=== PATIENT | female | born 1950 | race Caucasian/White ===

== ENCOUNTER 2021-09-07 21:40 | Inpatient (IN) ==
[2021-09-08] MEDS ORDERED: Ondansetron 4 MG/2 ML VIAL IVP PRN ×2 (00:58→14:11)
[2021-09-08] MEDS ORDERED: Naloxone 0.4 MG/ML INJ IVP PRN ×2 (00:58→14:11)
[2021-09-08] MEDS ORDERED: 0.9 % Sodium Chloride 1,000 ML IVC SCH (01:00)
[2021-09-08] MEDS ORDERED: Ipratropium/Albuterol Neb 3 ML IH PRN ×2 (01:02→14:11)
[2021-09-08 01:55] LABS: Basophils % 0.3 %; Eosinophils # 0.1 K/mcL (0.0-0.6); Eosinophils % 1.3 %; Hematocrit 38.3 % (35.3-44.9); Hemoglobin 12.4 g/dL (11.5-15.4); Immature Granulocytes % 0.3 % (0-4); Lymphocytes % 18.8 %; Mean Corpuscular HGB Conc 32.4 g/dL (31.6-35.5); Mean Corpuscular Hemoglobin 29.6 pg (28.0-33.3); Mean Corpuscular Volume 91.4 fL (83.0-100.0); Mean Platelet Volume 10.1 fL (9.4-12.4); Monocytes # 0.7 K/mcL (0.0-1.3); Monocytes % 6.4 %; Neutrophils # 7.9 K/mcL (1.6-8.9); Platelet Count 527 K/mcL (140-400); Red Blood Count 4.19 M/mcL (3.82-4.97); Red Cell Distribution Width 13.6 % (11.5-14.5); Segmented Neutrophils % 72.9 %; White Blood Count 10.8 K/mcL (4.3-11.1)
[2021-09-08 02:02] LABS: INR 1.1; Prothrombin Time 12.3 Seconds (9.4-12.1)
[2021-09-08] MEDS: Morphine Sulfate 2 MG/ML SYRINGE IVP PRN ×3 (02:10→20:18)
[2021-09-08 02:15] LABS: BUN/Creatinine Ratio 30 (6-26); Blood Urea Nitrogen 21 mg/dL (8-23); Calcium 8.7 mg/dL (8.6-10.3); Carbon Dioxide 19 mEq/L (23-29); Chloride 104 mEq/L (98-107); Glucose 99 mg/dL (70-105); Magnesium 1.7 mg/dL (1.6-2.6); Osmolality,Calculated 281 (280-300); Potassium 4.2 mEq/L (3.5-5.1); Sodium 134 mEq/L (136-145); eGFR For African Americans > 60 (> 60); eGFR For Non-African Americans > 60 (> 60)
[2021-09-08 02:28] LABS: Thyroid Stimulating Hormone 6.512 mcIU/mL (0.340-5.600)
[2021-09-08] MEDS ORDERED: Ipratropium/Albuterol Neb 3 ML IH STA ×2 (10:54→14:11)
[2021-09-08] MEDS ORDERED: Lidocaine HCL 4 ML Topical Solution (Laryng-O-Jet Kit Sterile Pak) TP ONE (11:11)
[2021-09-08] MEDS ORDERED: Lidocaine -MPF 2% 5 ML VIAL ONE (11:11)
[2021-09-08] MEDS ORDERED: *HR* FentaNYL (PF) 100 MCG/2 ML VIAL ONE (11:11)
[2021-09-08] MEDS ORDERED: *HR* Propofol 200 MG/20 ML VIAL IVP ONE (11:11)
[2021-09-08] MEDS ORDERED: Ondansetron 4 MG/2 ML VIAL ONE (11:11)
[2021-09-08] MEDS ORDERED: *HR* Rocuronium Bromide 50 MG/5 ML VIAL ONE (11:11)
[2021-09-08] MEDS ORDERED: CefOXitin 1,000 MG VIAL ONE (11:18)
[2021-09-08] MEDS ORDERED: *HR* Succinylcholine 200 MG/10 ML VIAL IVP ONE (11:28)
[2021-09-08] MEDS ORDERED: CefOXitin 2,000 MG VIAL ONE (11:30)
[2021-09-08] MEDS ORDERED: cefOXitin 2,000 MG in Water for inj. (sterile) 20 ML IVP ONE (12:06)
[2021-09-08] MEDS ORDERED: Sugammadex Sodium 200 MG/2 ML VIAL IV ONE (12:18)
[2021-09-08] MEDS ORDERED: *HR* HYDROMORPHONE 2 MG/ML VIAL ONE (12:20)
[2021-09-08] MEDS ORDERED: Famotidine 20 MG/2 ML VIAL IVP ONE (13:14)
[2021-09-08] MEDS ORDERED: *HR* Labetalol 20 MG/4 ML SYRINGE IVP PRN (13:14)
[2021-09-08] MEDS ORDERED: *HR* OxyCODONE Immed Rel 5 MG TABLET PO PRN (13:14)
[2021-09-08] MEDS ORDERED: *HR* HYDROmorphone 2 MG TABLET PO PRN (13:14)
[2021-09-08] MEDS ORDERED: *HR* HYDROmorphone (PF) 1 MG/ML SYRINGE IVP PRN (13:14)
[2021-09-08] MEDS ORDERED: Acetaminophen IV 1,000 MG/100 ML BAG IVPB ONE (13:14)
[2021-09-08] MEDS ORDERED: NON-FORMULARY MEDICATION 1 EACH EACH (Fluticasone/Salmeterol [Advair 250-50 Diskus] 1 EACH IH PRN (13:51)
[2021-09-08] MEDS: 0.9 % Sodium Chloride 1,000 ML IVC SCH (16:24)
[2021-09-08] MEDS: cefTRIAXone 1,000 MG in Water for inj. (sterile) 10 ML IVP SCH (20:24)
[2021-09-08] MEDS ORDERED: cefTRIAXone 1,000 MG in 0.9 % Sodium Chloride Mini Bag 100 ML IVPB SCH (21:00)
[2021-09-09] MEDS: Morphine Sulfate 2 MG/ML SYRINGE IVP PRN ×4 (02:21→20:23)
[2021-09-09] MEDS: 0.9 % Sodium Chloride 1,000 ML IVC SCH ×2 (06:10→20:19)
[2021-09-09 18:46] LABS: Amphetamine Screen,Urine Negative ng/mL (Cutoff=1000); Barbiturate Screen,Urine Negative ng/mL (Cutoff=200); Benzodiazepines Screen,Urine Negative ng/mL (Cutoff=200); Cannabinoid Screen,Urine Negative ng/mL (Cutoff = 50); Cocaine Screen,Urine Negative ng/mL (Cutoff= 300); Opiate Screen,Urine Positive ng/mL (Cutoff=300); Phencyclidine Screen,Urine Negative ng/mL (Cutoff=25)
[2021-09-09] MEDS: cefTRIAXone 1,000 MG in Water for inj. (sterile) 10 ML IVP SCH (20:17)
[2021-09-09] MEDS ORDERED: D5% in Water 1,000 ML IVC PRN (23:52)
[2021-09-09] MEDS ORDERED: Dextrose Gel 15 GM/37.5 ML TUBE PO PRN ×2 (23:52)
[2021-09-09] MEDS ORDERED: *HR* Dextrose 50 % in Water (Syg) 50 ML SYRINGE IVP PRN (23:52)
[2021-09-10] MEDS: Morphine Sulfate 2 MG/ML SYRINGE IVP PRN ×4 (00:10→23:29)
[2021-09-10] MEDS: Ipratropium/Albuterol Neb 3 ML IH SCH ×5 (11:22→23:18)
[2021-09-10 11:34] LABS: Basophils % 0.5 %; Eosinophils # 0.1 K/mcL (0.0-0.6); Hematocrit 40.9 % (35.3-44.9); Hemoglobin 12.9 g/dL (11.5-15.4); Immature Granulocytes % 0.5 % (0-4); Lymphocytes # 1.2 K/mcL (0.6-4.6); Mean Corpuscular HGB Conc 31.5 g/dL (31.6-35.5); Mean Corpuscular Hemoglobin 29.6 pg (28.0-33.3); Mean Corpuscular Volume 93.8 fL (83.0-100.0); Mean Platelet Volume 9.3 fL (9.4-12.4); Monocytes # 0.8 K/mcL (0.0-1.3); Monocytes % 9.2 %; Platelet Count 454 K/mcL (140-400); Red Blood Count 4.36 M/mcL (3.82-4.97); Red Cell Distribution Width 13.5 % (11.5-14.5); Segmented Neutrophils % 73.8 %; White Blood Count 8.2 K/mcL (4.3-11.1)
[2021-09-10 12:01] LABS: BUN/Creatinine Ratio 16 (6-26); Blood Urea Nitrogen 7 mg/dL (8-23); Calcium 8.9 mg/dL (8.6-10.3); Carbon Dioxide 17 mEq/L (23-29); Chloride 102 mEq/L (98-107); Glucose 128 mg/dL (70-105); Magnesium 1.7 mg/dL (1.6-2.6); Osmolality,Calculated 268 (280-300); Potassium 3.8 mEq/L (3.5-5.1); Sodium 129 mEq/L (136-145); eGFR For African Americans > 60 (> 60); eGFR For Non-African Americans > 60 (> 60)
[2021-09-10] MEDS: D5% in Water 1,000 ML IVC SCH (13:56)
[2021-09-10] MEDS: cefTRIAXone 1,000 MG in Water for inj. (sterile) 10 ML IVP SCH (20:30)
[2021-09-11] MEDS: Morphine Sulfate 2 MG/ML SYRINGE IVP PRN ×3 (01:30→05:39)
[2021-09-11] MEDS: Ipratropium/Albuterol Neb 3 ML IH SCH ×6 (03:41→23:21)
[2021-09-11] MEDS: D5% in Water 1,000 ML IVC SCH ×2 (05:21→21:47)
[2021-09-11 05:31] LABS: Basophils % 0.4 %; Eosinophils # 0.2 K/mcL (0.0-0.6); Eosinophils % 2.1 %; Hemoglobin 11.7 g/dL (11.5-15.4); Immature Granulocytes % 0.7 % (0-4); Lymphocytes # 1.5 K/mcL (0.6-4.6); Mean Corpuscular HGB Conc 32.5 g/dL (31.6-35.5); Mean Corpuscular Hemoglobin 29.3 pg (28.0-33.3); Mean Corpuscular Volume 90.2 fL (83.0-100.0); Mean Platelet Volume 10.6 fL (9.4-12.4); Monocytes % 12.5 %; Platelet Count 399 K/mcL (140-400); Red Blood Count 3.99 M/mcL (3.82-4.97); Red Cell Distribution Width 13.2 % (11.5-14.5); Segmented Neutrophils % 64.3 %; White Blood Count 7.7 K/mcL (4.3-11.1)
[2021-09-11 05:49] LABS: BUN/Creatinine Ratio 12 (6-26); Blood Urea Nitrogen 4 mg/dL (8-23); Calcium 8.3 mg/dL (8.6-10.3); Carbon Dioxide 23 mEq/L (23-29); Chloride 100 mEq/L (98-107); Glucose 118 mg/dL (70-105); Magnesium 1.6 mg/dL (1.6-2.6); Osmolality,Calculated 268 (280-300); Phosphorous 1.9 mg/dL (2.7-4.5); Sodium 130 mEq/L (136-145); eGFR For African Americans > 60 (> 60); eGFR For Non-African Americans > 60 (> 60)
[2021-09-11] MEDS: 0.9 % Sodium Chloride 1,000 ML IVC SCH (07:13)
[2021-09-11] MEDS ORDERED: Potassium Phosphate 44 MEQ in 0.9 % Sodium Chloride 250 ML IVPB ONE (08:25)
[2021-09-11] MEDS: cefTRIAXone 1,000 MG in Water for inj. (sterile) 10 ML IVP SCH (20:18)
[2021-09-12 03:34] LABS: Basophils % 0.5 %; Eosinophils # 0.3 K/mcL (0.0-0.6); Eosinophils % 3.9 %; Hematocrit 33.9 % (35.3-44.9); Hemoglobin 11.2 g/dL (11.5-15.4); Immature Granulocytes % 1.3 % (0-4); Lymphocytes # 1.5 K/mcL (0.6-4.6); Lymphocytes % 23.1 %; Mean Corpuscular Hemoglobin 29.9 pg (28.0-33.3); Mean Corpuscular Volume 90.6 fL (83.0-100.0); Mean Platelet Volume 10.7 fL (9.4-12.4); Monocytes % 16.4 %; Neutrophils # 3.5 K/mcL (1.6-8.9); Platelet Count 370 K/mcL (140-400); Red Blood Count 3.74 M/mcL (3.82-4.97); Red Cell Distribution Width 13.1 % (11.5-14.5); Segmented Neutrophils % 54.8 %; White Blood Count 6.4 K/mcL (4.3-11.1)
[2021-09-12 03:49] LABS: BUN/Creatinine Ratio 13 (6-26); Blood Urea Nitrogen 5 mg/dL (8-23); Calcium 8.5 mg/dL (8.6-10.3); Carbon Dioxide 22 mEq/L (23-29); Chloride 100 mEq/L (98-107); Glucose 111 mg/dL (70-105); Magnesium 1.8 mg/dL (1.6-2.6); Osmolality,Calculated 266 (280-300); Phosphorous 2.4 mg/dL (2.7-4.5); Potassium 3.6 mEq/L (3.5-5.1); Sodium 129 mEq/L (136-145); eGFR For African Americans > 60 (> 60); eGFR For Non-African Americans > 60 (> 60)
[2021-09-12] MEDS: Ipratropium/Albuterol Neb 3 ML IH SCH ×6 (03:58→23:23)
[2021-09-12] MEDS: D5% in Water 1,000 ML IVC SCH (14:11)
[2021-09-12] MEDS: Metoclopramide 10 MG/2 ML VIAL IVP SCH (17:51)
[2021-09-12] MEDS: cefTRIAXone 1,000 MG in Water for inj. (sterile) 10 ML IVP SCH (20:47)
[2021-09-13] MEDS: Metoclopramide 10 MG/2 ML VIAL IVP SCH ×4 (00:14→18:34)
[2021-09-13] MEDS: Ipratropium/Albuterol Neb 3 ML IH SCH ×6 (04:27→23:56)
[2021-09-13 06:53] LABS: Basophils % 0.6 %; Eosinophils # 0.3 K/mcL (0.0-0.6); Hematocrit 32.6 % (35.3-44.9); Hemoglobin 10.5 g/dL (11.5-15.4); Immature Granulocytes % 1.9 % (0-4); Lymphocytes # 1.5 K/mcL (0.6-4.6); Lymphocytes % 23.9 %; Mean Corpuscular HGB Conc 32.2 g/dL (31.6-35.5); Mean Corpuscular Hemoglobin 29.2 pg (28.0-33.3); Mean Corpuscular Volume 90.8 fL (83.0-100.0); Mean Platelet Volume 9.9 fL (9.4-12.4); Monocytes # 0.9 K/mcL (0.0-1.3); Monocytes % 14.8 %; Neutrophils # 3.4 K/mcL (1.6-8.9); Platelet Count 441 K/mcL (140-400); Red Blood Count 3.59 M/mcL (3.82-4.97); Red Cell Distribution Width 13.2 % (11.5-14.5); Segmented Neutrophils % 54.8 %; White Blood Count 6.3 K/mcL (4.3-11.1)
[2021-09-13 07:04] LABS: BUN/Creatinine Ratio 10 (6-26); Blood Urea Nitrogen 4 mg/dL (8-23); Calcium 8.6 mg/dL (8.6-10.3); Carbon Dioxide 24 mEq/L (23-29); Chloride 100 mEq/L (98-107); Glucose 110 mg/dL (70-105); Magnesium 1.7 mg/dL (1.6-2.6); Osmolality,Calculated 270 (280-300); Phosphorous 2.9 mg/dL (2.7-4.5); Potassium 3.3 mEq/L (3.5-5.1); Sodium 131 mEq/L (136-145); eGFR For African Americans > 60 (> 60); eGFR For Non-African Americans > 60 (> 60)
[2021-09-13] MEDS: D5% in Water 1,000 ML IVC SCH (07:42)
[2021-09-13] MEDS ORDERED: Acetaminophen 325 MG TABLET PO PRN (15:33)
[2021-09-13] MEDS: cefTRIAXone 1,000 MG in Water for inj. (sterile) 10 ML IVP SCH (21:12)
[2021-09-14] MEDS: Metoclopramide 10 MG/2 ML VIAL IVP SCH ×4 (00:41→18:32)
[2021-09-14] MEDS: D5% in Water 1,000 ML IVC SCH ×2 (02:07→21:54)
[2021-09-14] MEDS: Ipratropium/Albuterol Neb 3 ML IH SCH ×6 (04:34→23:20)
[2021-09-14 06:00] LABS: Basophils # 0.1 K/mcL (0.0-0.2); Basophils % 0.7 %; Eosinophils # 0.2 K/mcL (0.0-0.6); Eosinophils % 3.2 %; Immature Granulocytes % 1.9 % (0-4); Lymphocytes # 1.6 K/mcL (0.6-4.6); Lymphocytes % 23.9 %; Mean Corpuscular HGB Conc 32.1 g/dL (31.6-35.5); Mean Corpuscular Hemoglobin 29.1 pg (28.0-33.3); Mean Corpuscular Volume 90.7 fL (83.0-100.0); Mean Platelet Volume 10.2 fL (9.4-12.4); Monocytes # 1.1 K/mcL (0.0-1.3); Monocytes % 15.9 %; Neutrophils # 3.7 K/mcL (1.6-8.9); Platelet Count 491 K/mcL (140-400); Red Blood Count 4.19 M/mcL (3.82-4.97); Red Cell Distribution Width 13.2 % (11.5-14.5); Segmented Neutrophils % 54.4 %; White Blood Count 6.8 K/mcL (4.3-11.1)
[2021-09-14 06:05] LABS: Hemoglobin 12.2 g/dL (11.5-15.4)
[2021-09-14 06:27] LABS: BUN/Creatinine Ratio 10 (6-26); Blood Urea Nitrogen 4 mg/dL (8-23); Calcium 9.4 mg/dL (8.6-10.3); Carbon Dioxide 23 mEq/L (23-29); Chloride 101 mEq/L (98-107); Glucose 98 mg/dL (70-105); Magnesium 1.7 mg/dL (1.6-2.6); Osmolality,Calculated 271 (280-300); Phosphorous 3.4 mg/dL (2.7-4.5); Potassium 4.1 mEq/L (3.5-5.1); Sodium 132 mEq/L (136-145); eGFR For African Americans > 60 (> 60); eGFR For Non-African Americans > 60 (> 60)
[2021-09-14] MEDS: *HR* OxyCODONE/APAP 5/325 TABLET PO PRN ×2 (12:47→19:36)
[2021-09-14] MEDS: cefTRIAXone 1,000 MG in Water for inj. (sterile) 10 ML IVP SCH (20:31)
[2021-09-15] MEDS: Metoclopramide 10 MG/2 ML VIAL IVP SCH ×2 (00:20→05:25)
[2021-09-15] MEDS: *HR* OxyCODONE/APAP 5/325 TABLET PO PRN (01:44)
[2021-09-15] MEDS: Ipratropium/Albuterol Neb 3 ML IH SCH ×3 (03:58→10:50)
[2021-09-15 11:11] VITALS: BP 119/74; PULSE 78; TEMP 98.6; O2SAT 93
== END 2021-09-15 13:28 | disposition home health service (06) | DRG 336 ==
LOC: 3ANU → SUATTDRO 23:55
PROVIDERS: ADMIT Internal Medicine; ATTEND Internal Medicine